=== PATIENT | female | born 1950 | race Caucasian/White ===

== ENCOUNTER 2016-09-27 10:12 | Emergency (ER) | payer OTHER ==
[~2016-09-27] VITALS: Ht 167.6 cm; Wt 67.1 kg
[2016-09-27 10:16] VITALS: BP 138/68
== END 2016-09-27 11:33 | disposition home or self-care (01) ==
LOC: ER 10:25
DX: J18.9 Pneumonia, unspecified organism (principal); I10 Essential (primary) hypertension; E11.9 Type 2 diabetes mellitus without complications
CPT/HCPCS: 71010; 99283; A4606; Z7610

== ENCOUNTER 2016-10-03 11:05 | Emergency (ER) | payer OTHER ==
[~2016-10-03] VITALS: Ht 170.2 cm; Wt 67.1 kg
[2016-10-03 11:15] VITALS: BP 122/81
== END 2016-10-03 11:48 | disposition home or self-care (01) ==
LOC: ER 11:06
DX: J40 Bronchitis, not specified as acute or chronic (principal); E11.9 Type 2 diabetes mellitus without complications; I10 Essential (primary) hypertension
CPT/HCPCS: A4606; Z7502; Z7610